=== PATIENT | female | born 1995 | race Caucasian/White ===

== ENCOUNTER 2018-03-24 09:19 | Emergency (ER) | payer SELFPAY ==
[~2018-03-24] VITALS: Ht 134.6 cm; Wt 49.9 kg
[2018-03-24 09:30] VITALS: BP_SYST 137
[2018-03-24 10:00] VITALS: BP_SYST 129
== END 2018-03-24 10:00 | disposition home or self-care (01) ==
LOC: SED 09:19
DX: J02.8 Acute pharyngitis due to other specified organisms (principal); B97.89 Other viral agents as the cause of diseases classified elsewhere; E11.9 Type 2 diabetes mellitus without complications
CPT/HCPCS: 99283